=== PATIENT | female | born 1980 | race American Indian/Alaskan Native ===

== ENCOUNTER 2017-11-13 10:21 | Emergency (ER) | payer OTHER ==
[2017-11-13 11:26] VITALS: BP 130/67
[2017-11-13] MEDS ORDERED: ULTRAM PO ONE (13:27)
[2017-11-13] MEDS ORDERED: ANTIBIOTIC OINT TP NR (13:28)
--- NOTE | 2017-11-13 13:31 | Emergency Department Report ---
Chief Complaint: Extremity Injury, Lower Stated Complaint: CUT ON FOOT Time Seen by Provider: 11/13/17 13:11 - HPI History of Present Illness: The patient is a 37-year-old female who presents for evaluation of right fourth and fifth toe pain. The patient states that she tripped and struck her fourth and fifth toe on a piece of tile yesterday afternoon. Since she has experienced aching moderate to severe pain exacerbated with weightbearing or movement of the toes. She denies trauma to the head, headache, syncope, chest pain, dyspnea, abdominal pain, significant bleeding, paresthesia, or pain from trauma elsewhere. - Exam Vital Signs: Vital Signs 11/13/17 11:22 Temperature 98.5 F Pulse Rate 71 Respiratory 16 Rate Blood Pressure 130/67 O2 Sat by Pulse 100 Oximetry MSE screening note: Focused history and physical exam performed. Due to findings the following was ordered: ED Disposition for MSE Condition: Stable Referrals: PRIMARY CARE, [Primary Care Provider] - 3-5 Days
--- NOTE | 2017-11-13 13:59 | XRay Report ---
Right fourth and fifth toe 3 views: History: Foot pain. Findings: No periosteal reaction, lytic lesion or fracture. No soft tissue calcification. There appears to be fusion of the middle and distal phalanx fourth toe. Irregularity of the distal phalanx cortex is also noted which may be related to recent or old injury. Impression: Findings as detailed above. Clinical correlation advised Impression: No definite bony or articular abnormality.
[2017-11-13] MEDS ORDERED: BOOSTRIX IM ONE (14:36)
--- NOTE | 2017-11-13 14:38 | Emergency Department Report ---
ED Lower Extremity HPI - General Chief Complaint: Extremity Injury, Lower Stated Complaint: CUT ON FOOT Time Seen by Provider: 11/13/17 13:11 Source: patient Mode of arrival: Ambulatory Limitations: No Limitations - History of Present Illness Initial Comments: The patient is a 37-year-old female nontoxic, well nourished in appearance, no acute signs of distress presents to the ED with c/o of right fourth and fifth toe pain. The patient states that she tripped and struck her fourth and fifth toe on a piece of tile yesterday afternoon. Patient denies any numbness, tingling, decreased ROM, fever, chills, headache, nausea, vomiting, chest pain or shortness of breathe. Patient stated has some abrasions. Patient denies tetanus shot within 5 years. Patient denies any allergies or significatn PMH. MD Complaint: foot injury -: Last night Injury: Toes: Right (4th and 5th) Place: home Severity: mild Severity scale (0 -10): 8 Improves With: immobilization Worsens With: movement Associated Symptoms: ambulatory. denies: snap/pop sensation, swelling, numbness , tingling, unable to bear weight, able to partially bear weight - Related Data Previous Rx's Medication Instructions Recorded Last Taken Type Sulfamethoxazole/Trimethoprim 1 each PO BID #14 tablet 11/13/17 Unknown Rx [Bactrim DS TAB] Allergies Allergy/AdvReac Type Severity Reaction Status Date / Time No Known Allergies Allergy Unverified 11/13/17 11:22 ED Review of Systems ROS: Stated complaint: CUT ON FOOT Other details as noted in HPI Constitutional: denies: chills, fever Eyes: denies: eye pain, eye discharge, vision change ENT: denies: ear pain, throat pain Respiratory: denies: cough, shortness of breath, wheezing Cardiovascular: denies: chest pain, palpitations Endocrine: no symptoms reported Gastrointestinal: denies: abdominal pain, nausea, diarrhea Genitourinary: denies: urgency, dysuria, discharge Musculoskeletal: denies: back pain, joint swelling, arthralgia Skin: denies: rash, lesions Neurological: denies: headache, weakness, paresthesias Psychiatric: denies: anxiety, depression Hematological/Lymphatic: denies: easy bleeding, easy bruising ED Past Medical Hx - Past Medical History Additional medical history: Lupus - Surgical History Additional Surgical History: C sect - Social History Smoking Status: Never Smoker Substance Use Type: None - Medications Home Medications: Home Medications Medication Instructions Recorded Confirmed Last Taken Type Sulfamethoxazole/Trimethoprim 1 each PO BID #14 tablet 11/13/17 Unknown Rx [Bactrim DS TAB] ED Physical Exam - General Limitations: No Limitations General appearance: alert, in no apparent distress - Head Head exam: Present: atraumatic, normocephalic - Eye Eye exam: Present: normal appearance - ENT ENT exam: Present: mucous membranes moist - Neck Neck exam: Present: normal inspection - Respiratory Respiratory exam: Present: normal lung sounds bilaterally. Absent: respiratory distress - Cardiovascular Cardiovascular Exam: Present: regular rate, normal rhythm. Absent: systolic murmur, diastolic murmur, rubs, gallop - GI/Abdominal GI/Abdominal exam: Present: soft, normal bowel sounds - Extremities Exam Extremities exam: Present: normal inspection, full ROM, tenderness, normal capillary refill. Absent: pedal edema, joint swelling, calf tenderness - Expanded Lower Extremity Exam Right Hip exam: Present: normal inspection, full ROM Upper Leg exam: Present: normal inspection, full ROM Knee exam: Present: normal inspection, full ROM Lower Leg exam: Present: normal inspection, full ROM Ankle exam: Present: normal inspection, full ROM Foot/Toe exam: Present: normal inspection, full ROM, tenderness, abrasion. Absent: swelling, laceration, ecchymosis, deformity, crepidus, dislocation, erythema, amputation, puncture wound, foreign body, calcaneal tenderness, tenderness at base of 5th metatarsal, nail avulsion, subungual hematoma Neuro vascular tendon exam: Present: no vascular compromise. Absent: pulse deficit, abnormal cap refill, motor deficit, sensory deficit, tendon deficit, extremity cold to touch, pallor, abnormal 2-point discrimination, decreased fine /light touch, foot drop, peroneal nerve deficit, significant pain with passive ROM of distal joint Gait: Positive: observed and limited by pain 1 - abrasion - Back Exam Back exam: Present: normal inspection - Neurological Exam Neurological exam: Present: alert, oriented X3 - Psychiatric Psychiatric exam: Present: normal affect, normal mood - Skin Skin exam: Present: warm, dry, intact, normal color. Absent: rash ED Course Vital Signs 11/13/17 11:22 Temperature 98.5 F Pulse Rate 71 Respiratory 16 Rate Blood Pressure 130/67 O2 Sat by Pulse 100 Oximetry - Reevaluation(s) Reevaluation #1: 11/13/17 14:44 Patient is speaking in full sentences with no signs of distress noted. - Consultations Consultation #1: 11/13/17 14:44 Patient has been consulted with Dr. Fernandez about patient history, physical exam, and labs and examined and screened patient and agrees to ED plan of care and discharge plan of care. ED Lower Extremity MDM - Medical Decision Making This is a 37-year-old female that presents with abrasion. Patient is stable and was examined by me and Dr. Fernandez. Xray within normal limits and dictated by radiolgist. There has been cleaned with soap and water and bacitracin ointment applied to the area. A sterile dressing has been applied. Patient received a tetanus booster in the ED. Patient discharged with Bactrim and Motrin for pain. Patient was instructed to proper wound care. Patient was also instructed to Follow-up with a primary care doctor in 3-5 days or if symptoms worsen and continue return to emergency room as soon as possible. At time of discharge, the patient does not seem toxic or ill in appearance. No acute signs of distress noted. Patient agrees to discharge treatment plan of care. No further questions noted by the patient. Critical care attestation.: If time is entered above; I have spent that time in minutes in the direct care of this critically ill patient, excluding procedure time. ED Disposition Clinical Impression: Abrasion Disposition: DC-01 TO HOME OR SELFCARE Is pt being admited?: No Does the pt Need Aspirin: No Condition: Stable Instructions: Abrasion (ED), Sulfamethoxazole/Trimethoprim (By mouth) Additional Instructions: Follow-up with a primary care doctor in 3-5 days or if symptoms worsen and continue return to emergency room as soon as possible. Prescriptions: Sulfamethoxazole/Trimethoprim [Bactrim DS TAB] 1 each PO BID #14 tablet Referrals: PRIMARY CARE, [Primary Care Provider] - 3-5 Days ATIF SHIPMAN MD [Staff Physician] - 3-5 Days [facility] [place] [Outside] - 3-5 Days [facility] [Outside] - 3-5 Days Forms: Work/School Release Form(ED)
== END 2017-11-13 14:59 | disposition home or self-care (01) ==
LOC: ED 10:21
DX: S90.414A Abrasion, right lesser toe(s), initial encounter (principal); M32.9 Systemic lupus erythematosus, unspecified; W26.8XXA Contact with other sharp object(s), not elsewhere classified, initial encounter; Y93.89 Activity, other specified; Y92.89 Other specified places as the place of occurrence of the external cause; Y99.8 Other external cause status
CPT/HCPCS: 90471; 90715; 99283